=== PATIENT | male | born 1975 | race Caucasian/White ===

== ENCOUNTER 2023-07-25 12:26 | Emergency (ER) | payer BC, SELFPAY ==
[2023-07-25 12:33] VITALS: BP 167/110
[2023-07-25 12:50] LABS: % Basophils 0.8 % (0-2); % Eosinophils 3.2 % (0-6); % Immature Granulocytes 0.2 % (0-0.5); % Lymphocytes 28.5 % (20.5-51.1); % Monocytes 8.9 % (1.7-9.3); % Neutrophils 58.4 % (42.2-75.2); Absolute Eosinophils 0.2 10^3/uL (0-0.7); Absolute Lymphocytes 1.5 10^3/uL (1.2-3.4); Absolute Monocytes 0.5 10^3/uL (0.1-0.6); Absolute Neutrophils 3.1 10^3/uL (1.4-6.5); Hematocrit 42.5 % (39.0-52.0); Hemoglobin 15.6 g/dL (13.0-18.0); Mean Corp Hgb Conc. 36.7 g/dL (33.0-37.0); Mean Corpuscular Hgb 31.6 pg (27.0-31.0); Mean Corpuscular Volume 86.2 fL (80.0-94.0); Mean Platelet Volume 10.5 fL (7.4-10.4); Nucleated Red Blood Cells % 0 % (-); Platelet Count 188 10^3/uL (130-400); Red Blood Cell Count 4.93 10^6/uL (4.70-6.10); Red Cell Dist. Width 11.9 % (11.5-14.5); White Blood Cell Count 5.3 10^3/uL (4.8-10.8)
[2023-07-25 13:04] LABS: ALT (SGPT) 52 U/L (0-50); AST (SGOT) 39 U/L (17-59); Albumin 4.8 g/dl (3.5-5.0); Alkaline Phosphatase 63 U/L (38-126); Blood Urea Nitrogen 13 mg/dl (9-20); Calcium 9.6 mg/dl (8.4-10.2); Carbon Dioxide 30 mmol/L (22-30); Chloride 102 mmol/L (98-107); Glucose 101 mg/dl (70-99); Lipase 110 U/L (23-300); Potassium 4.4 mmol/L (3.5-5.1); Sodium 137 mmol/L (135-145); Total Bilirubin 0.7 mg/dl (0.2-1.3); Total Protein 7.8 g/dl (6.3-8.2); eGFR > 60.00
[2023-07-25 14:45] VITALS: BP 154/98; BMI 27.8
--- NOTE | 2023-07-25 15:30 | ED.GENMED ---
History of Present Illness
<Jacklyn Puga YARD INSPECTOR - Last Filed: 07/31/23 10:10>
General
Chief Complaint: Abdominal Pain
Source: patient
Exam Limitations: none
Time Seen by Provider: 07/25/23 14:02
Nursing documentation reviewed up to this point in time: agreed with
Travel History
Have you had any contact with someone who has COVID-19?: No
Do you have any symptoms of coronavirus? Fever > 100 degrees, chills, cough, shortness of breath, sore throat, loss of taste or smell, muscle aches, or headache?: No
History of Present Illness
History of Present Illness:
47-year-old male with no significant past medical history states at 10 AM he was standing in a meeting at work when he developed sharp shooting pains in the left lateral side, he stretched, he rested for 30 minutes and then stood up and 'collapsed'
due to the pain stating he could not weight-bear on the left leg due to the pain in the left side. He denies any hip or leg pain or weakness. He states laying on the stretcher now the pain is 3/10 and feels 'warm and hot inside.' He has no
recollection of overuse or injury. Denies dark urine or painful urination. Denies N/V/D/C.
Past History
<Jacklyn Puga YARD INSPECTOR - Last Filed: 07/31/23 10:10>
Past History
ED Past Medical History: None
ED Past Surgical History: Appendectomy, Orthopedic (achilles tendon repair) and Other (Achilles tendon repair)
Social History
Tobacco: Non-smoker
Alcohol: Occasional
Drug: None
Personal:
Living: with family
Employment: Employed
Family History
Family History: Early CAD (Father age 50 of [place]. Mother had GA age 50); Negative Sudden
Phy Exam
<Jacklyn Puga YARD INSPECTOR - Last Filed: 07/31/23 10:10>
Physical Exam
Physical Exam:
GENERAL: No acute distress. A&Ox3.
CONSTITUTIONAL: Afebrile.
RESPIRATORY: Regular respirations, nonlabored, lungs clear.
CARDIOVASCULAR: Regular rate and rhythm, no murmurs, no rubs.
GI: Soft, nontender, normal BS
MUSCULOSKELETAL: Moves with ease. Well perfused.
SKIN: Warm, dry, pink
PSYCH: Normal mood and affect. Well kept, interactive and appropriate
NEUROLOGIC: Awake, alert and oriented. No focal neurological deficits
Course
<Jacklyn Puga YARD INSPECTOR - Last Filed: 07/31/23 10:10>
Orders/Labs/Results
Orders:
Orders
07/25/23 12:38
Abdomen/Pelvis wo Contrast CT [CT Abd/pelvis Wo Iv Cont] Urgent
Comment:
Reason For Exam: LLQ pain
07/25/23 12:42
Complete Blood Count/With Diff Urgent
Comprehensive Metabolic Panel Urgent
Lipase Urgent
07/25/23 15:30
Crutches-Treatment ONCE
Ketorolac [Toradol] 15 mg IM NOW STA
07/25/23 15:55
Urinalysis Reflex To Culture Urgent
Date Specimen was Collected: 07/25/23
Time Specimen was Collected: 12:35
Abnormal Lab Results
07/25/23
12:42
MCH 31.6 H pg
(27.0-31.0)
MPV 10.5 H fL
(7.4-10.4)
Glucose 101 H mg/dl
(70-99)
ALT 52 H U/L
(0-50)
07/25/23 12:42
07/25/23 12:42
Vital Signs
Initial and Last Documented VS:
Initial Vital Signs
Temp Pulse Resp BP Pulse Ox
97.0 F 70 18 167/110 100
07/25/23 12:33 07/25/23 12:33 07/25/23 12:33 07/25/23 12:33 07/25/23 12:33
Last Documented Vital Signs
Temp Pulse Resp BP Pulse Ox
97.0 F 74 16 134/90 98
07/25/23 12:33 07/25/23 16:06 07/25/23 16:06 07/25/23 16:06 07/25/23 16:06
Clinical Veterinarian consulted with Physician
Clinical Veterinarian consulted with physician?: Yes
Name of Physician Consulted: Kathy
<Johnnie Chavez, DO - Last Filed: 08/01/23 00:41>
Orders/Labs/Results
Orders:
Orders
07/25/23 12:38
Abdomen/Pelvis wo Contrast CT [CT Abd/pelvis Wo Iv Cont] Urgent
Comment:
Reason For Exam: LLQ pain
07/25/23 12:42
Complete Blood Count/With Diff Urgent
Comprehensive Metabolic Panel Urgent
Lipase Urgent
07/25/23 15:30
Crutches-Treatment ONCE
Ketorolac [Toradol] 15 mg IM NOW STA
07/25/23 15:55
Urinalysis Reflex To Culture Urgent
Date Specimen was Collected: 07/25/23
Time Specimen was Collected: 12:35
Abnormal Lab Results
07/25/23
12:42
MCH 31.6 H pg
(27.0-31.0)
MPV 10.5 H fL
(7.4-10.4)
Glucose 101 H mg/dl
(70-99)
ALT 52 H U/L
(0-50)
07/25/23 12:42
07/25/23 12:42
Vital Signs
Initial and Last Documented VS:
Initial Vital Signs
Temp Pulse Resp BP Pulse Ox
97.0 F 70 18 167/110 100
07/25/23 12:33 07/25/23 12:33 07/25/23 12:33 07/25/23 12:33 07/25/23 12:33
Last Documented Vital Signs
Temp Pulse Resp BP Pulse Ox
97.0 F 74 16 134/90 98
07/25/23 12:33 07/25/23 16:06 07/25/23 16:06 07/25/23 16:06 07/25/23 16:06
<Jacklyn Puga NP - Last Filed: 07/31/23 10:10>
MDM/Problems Addressed
Differential Diagnosis Includes:
Kidney stone, diverticulitis, musculoskeletal
MDM/Problems Addressed:
47-year-old male with no significant past medical history states at 10 AM he was standing in a meeting at work when he developed sharp shooting pains in the left lateral side, he stretched, he rested for 30 minutes and then stood up and 'collapsed'
due to the pain stating he could not weight-bear on the left leg due to the pain in the left side. He denies any hip or leg pain or weakness. He states laying on the stretcher now the pain is 3/10 and feels 'warm and hot inside.' He has no
recollection of overuse or injury. Denies dark urine or painful urination. Denies N/V/D/C.
2:30 PM
CBC normal
CMP normal
CT abdomen and pelvis without p.o. or IV contrast shows nothing abnormal
In to reevaluate patient, there is absolutely no pain with deep palpation of the entire abdomen, palpation of the left lower back buttock and hip area, he has full range of motion of the hip joint without any discomfort.
He swings his legs around and sits on the edge of the bed with ease. Upon standing, he stands stably for a few seconds moving in different positions and finally collapses holding onto the stretcher due to pain in the left side with weightbearing on
left leg.
Afterwards, exam is unremarkable at rest, again absolutely no abdominal pain, back pain or pain with ROM of left hip.
This is most likely musculoskeletal pain.
Plan: Toradol po, crutches, orthopedic f/u
Dr. Chavez in to evaluate and agrees
Pt is comfortable with this plane
Rx for Toradol sent to his pharmacy
<Jacklyn Puga, YARD INSPECTOR - Last Filed: 07/31/23 10:10>
*Critical Care Note
Total Time (30-74mins, 75-104mins- exclusive of procedures): Not Applicable
ED Attending Note
<Jacklyn Puga, YARD INSPECTOR - Last Filed: 07/31/23 10:10>
-
Portions of this chart may have been created with voice recognition software.� Occasional wrong word or��sound alike� substitutions may have occurred due to the inherent limitations of voice recognition software.
<Johnnie Chavez, DO - Last Filed: 08/01/23 00:41>
ED Attending Note
Patient seen and examined by attending physician: Yes
ED Attending Note:
I have reviewed and agree with patient treatment plan by Yamilet puga. My exam revealed 48-year-old male with no palpable tenderness palpation. He is able to stand up, but has pain limits his standing. No acute findings on labs or CT abdomen pelvis.
Stable for discharge
Discharge Plan
Departure
Patient Disposition: Home (Routine Discharge)
Date of Disposition: 07/25/23
Time of Disposition: 15:36
Patient with high blood pressure during this ER visit?: Yes
Condition: Good
Discharge Problem:
Left sided abdominal pain
Instructions: Musculoskeletal Pain
Prescriptions:
New
ketorolac 10 mg tablet
10 mg PO Q8H PRN (Reason: Pain) 5 Days Qty: 30 0RF
No Action
riley seed oil-omega 3-6-9 1,000 MG capsule
1 tab PO DAILY
Fish Oil
1 tab PO DAILY
Vitamin D
1 tab PO DAILY
epinephrine [EpiPen] 0.3 MG/0.3/SYRINGE auto-injector
0.3 mg IM STAT! PRN (Reason: SHORTNESS OF BREATH, SWELLING) Qty: 2 0RF
cyclobenzaprine 10 MG tablet
10 mg PO TIDPRN PRN (Reason: back spasms/pain) Qty: 30 0RF
ibuprofen 600 MG tablet
600 mg PO TIDPRN PRN (Reason: pain) Qty: 30 0RF
albuterol sulfate 1 PUFF HFA aerosol inhaler
1 puff inhalation R Q4HPRN PRN (Reason: wheezing) Qty: 1 0RF
ondansetron 4 MG tablet,disintegrating
4 mg PO TIDPRN PRN (Reason: nausea/vomiting) Qty: 10 0RF
celecoxib 200 MG capsule
200 mg PO BID Qty: 20 0RF
ibuprofen 600 MG tablet
600 mg PO Q6 Qty: 20 0RF
cyclobenzaprine 10 MG tablet
10 mg PO TIDPRN PRN (Reason: Pain, spasm) Qty: 15 0RF
Referrals:
UNKNOWN - PT DOES,NOT KNOW [Family Provider] -
Lionel Mayorga MD [Active] - Call in 1-3 days for appt
Activity Restrictions/Additional Instructions:
As we discussed, we will treat this like musculoskeletal pain for now.
Use the crutches with gradually increasing weightbearing as comfort permits.
Call the orthopedic doctors office today and make an appointment for next week.
I sent a prescription to your pharmacy for Toradol to take once every 8 hours as needed for pain
Seek medical care immediately for vomiting, fever, worsening pain or feeling sicker in any way
Interventions
Interventions:
*Risk Screen - Suicide Last Done: 07/25/23 12:33
*General Assessment Last Done: 07/25/23 12:33
*Neglect/Abuse Screening Last Done: 07/25/23 12:33
ED- Fall Risk Assessment Last Done: 07/25/23 14:45
*ED COVID-19 Vaccine History Last Done: 07/25/23 12:33
*Nursing Disposition Last Done: 07/25/23 16:06
TU-Fimsqf-Mdpzzmlxif Assessment Last Done: 07/25/23 14:45
Discharge Date and Time
Discharge Date/Time: 07/25/23 16:05
Print Language: DOMINICAN
[2023-07-25] MEDS: TORADOL 15 MG IM (15:42)
--- NOTE | 2023-07-25 16:05 | EDRN ---
Reviewed discharge instructions with patient. Verbalized understanding. Instructed patient on crutch walking. Demonstrated proper technique.
[2023-07-25 16:06] VITALS: BP 134/90
[2023-07-25 16:12] LABS: Urine Albumin Negative (Neg - Trace); Urine Bilirubin Negative (Negative); Urine Character Clear (Clear); Urine Color Yellow; Urine Glucose Negative (Negative); Urine Ketone Negative (Negative); Urine Leukocyte Negative (Negative); Urine Nitrite Negative (Negative); Urine Occult Blood Negative (Negative); Urine Urobilinogen Negative (Neg - 1+)
== END 2023-07-25 16:05 | disposition home or self-care (01) ==
LOC: EMR 12:26
PROVIDERS: Internal Medicine Gastroenterology; EMERGENCY PHYSICIAN Emergency Medicine
DX: R10.9 Unspecified abdominal pain (principal); R03.0 Elevated blood-pressure reading, without diagnosis of hypertension
CPT/HCPCS: 99284; 96372; 74176; 80053; 81003; 83690; 85025

== ENCOUNTER → 2024-06-07 06:57 | Outpatient (REF) | payer BC, SELFPAY | LOC: MRI 06:57 | PROVIDERS: ATTENDING PHYSICIAN Orthopaedic Surgery; FAMILY PHYSICIAN Family Medicine | DX: R22.41 Localized swelling, mass and lump, right lower limb (principal); M25.571 Pain in right ankle and joints of right foot; S86.011S Strain of right Achilles tendon, sequela; S93.33 Other subluxation and dislocation of foot | CPT/HCPCS: 73723; A9575 ==

== ENCOUNTER → 2024-07-03 08:24 | Outpatient (REF) | payer BC, SELFPAY | LOC: RAD 08:24 | PROVIDERS: ATTENDING PHYSICIAN Orthopaedic Surgery; FAMILY PHYSICIAN Physician Assistant Medical | DX: R22.41 Localized swelling, mass and lump, right lower limb (principal); M25.571 Pain in right ankle and joints of right foot; S86.011S Strain of right Achilles tendon, sequela; S93.33 Other subluxation and dislocation of foot | CPT/HCPCS: 76882 ==